=== PATIENT | male | born 1960 | race Caucasian/White ===

== ENCOUNTER 2019-05-15 09:48 | Day surgery (SDC) | payer OTHER ==
[2019-05-15] MEDS ORDERED: MIDAZOLAM 1 MG/ML 2 ML INJ (11:15)
[2019-05-15] MEDS: PROPARACAINE 0.5% 15 ML OPH RIGHT EYE (11:17)
[2019-05-15] MEDS: MOXIFLOXACIN 0.5% 3 ML OPH RIGHT EYE (11:20)
[2019-05-15] MEDS: PHENYLephrine 2.5% 15 ML OPH RIGHT EYE (11:21)
[2019-05-15] MEDS: CYCLOPENTOLATE 1% 2 ML OPH RIGHT EYE (11:21)
[2019-05-15] MEDS: TROPICAMIDE 1% 15 ML OPH RIGHT EYE (11:21)
[2019-05-15] MEDS ORDERED: BSS PLUS 500 ML + VANCO 10MG, GENT 4 MG, EPI 0.25 MG IRR (12:30)
[2019-05-15] MEDS ORDERED: NA HYALURONATE/CHONDROITIN 0.5 ML SYG (12:56)
[2019-05-15] MEDS: LIDOCAINE 1% (MPF) 10 ML INJ (12:56)
== END 2019-05-15 15:40 | disposition home or self-care (01) ==
LOC: SDS 09:48
DX: H26.8 Other specified cataract (principal)
CPT/HCPCS: 66984

== ENCOUNTER 2019-06-26 05:28 | Day surgery (SDC) | payer OTHER ==
[2019-06-26] MEDS: MOXIFLOXACIN 0.5% 3 ML OPH OPER (06:10)
[2019-06-26] MEDS: TROPICAMIDE 1% 15 ML OPH OPER (06:10)
[2019-06-26] MEDS: PHENYLephrine 2.5% 15 ML OPH OPER (06:10)
[2019-06-26] MEDS: CYCLOPENTOLATE 1% 2 ML OPH OPER (06:10)
[2019-06-26] MEDS: LACTATED RINGER'S 1,000 ML IV (06:11)
[2019-06-26] MEDS: PROPARACAINE 0.5% 15 ML OPH OPER (06:16)
[2019-06-26] MEDS ORDERED: BSS PLUS 500 ML + VANCO 10MG, GENT 4 MG, EPI 0.25 MG IRR (07:30)
[2019-06-26] MEDS ORDERED: FENTAnyl 50 MCG/ML VIAL (07:36)
[2019-06-26] MEDS ORDERED: MIDAZOLAM 1 MG/ML 2 ML INJ (07:36)
[2019-06-26] MEDS ORDERED: OXYCODONE/ACETAMINOPHEN (5/325) TAB PO ×2 (08:00)
[2019-06-26] MEDS ORDERED: MEPERIDINE 25 MG INJ IV (08:00)
[2019-06-26] MEDS ORDERED: FENTAnyl 50 MCG/ML VIAL IV ×3 (08:00)
[2019-06-26] MEDS: LIDOCAINE 1% (MPF) 5 ML VIAL INJ (08:50)
[2019-06-26] MEDS: TETRACAINE 0.5% 4 ML OPH LEFT EYE (08:50)
[2019-06-26] MEDS: ONDANSETRON 4 MG INJ IV (09:55)
[2019-06-26] MEDS ORDERED: EPHEDrine 25 MG/5 ML SYG (10:32)
[2019-06-26] MEDS: EPHEDrine 25 MG/5 ML SYG IV (10:54)
[2019-06-26] MEDS ORDERED: LACTATED RINGER'S 250 ML IV (11:00)
== END 2019-06-26 12:36 | disposition home or self-care (01) ==
LOC: SDS 05:28
DX: H26.9 Unspecified cataract (principal)
CPT/HCPCS: 66984